=== PATIENT | male | born 1965 | race African-American/Black ===

== ENCOUNTER 2024-09-20 19:00 | Inpatient (IN) | payer OTHER ==
[2024-09-20 19:08] VITALS: RESP 18; BMI 30.2
[2024-09-20] MEDS ORDERED: ACETAMINOPHEN INJECTION 100 ML ONE (20:57)
[2024-09-20] MEDS: ACETAMINOPHEN 1000 MG/100 ML BAG IVPB ONE (20:58)
[2024-09-20 21:00] LABS: BASO % 0.2 % (0-2.0); HEMATOCRIT 41.4 % (35.4-49); HEMOGLOBIN 13.9 GM/dL (11.7-16.9); LYMPH % 11.5 % (8-40); MCH 29.8 pg (25.7-33.7); MCHC 33.7 g/dl (32.0-35.9); MEAN CELL VOLUME 88.5 fl (80-96); MEAN PLT VOLUME 6.6 fl (7.5-11.1); MONO % 9.4 % (3.8-10.2); NEUT % 78.9 % (42.8-82.8); PLATELET COUNT 336 10^3/uL (134-434); RBC 4.67 M/mm3 (4.00-5.60); RDW 13.2 % (11.9-15.9)
[2024-09-20 21:06] LABS: EPI CELLS 12 /uL (0-25.1); HYALINE CASTS 1 /uL (0-3.1); PH,URINE 5.5 (5.0-8.0); URINE APPEARANCE CLOUDY; URINE BACTERIA 2576 /uL (0-1359); URINE BILIRUBIN NEGATIVE (NEGATIVE); URINE COLOR YELLOW; URINE GLUCOSE (UA) NEGATIVE (NEGATIVE); URINE KETONE TRACE (NEGATIVE); URINE LEUK ESTERASE 1+ (NEGATIVE); URINE NITRITE NEGATIVE (NEGATIVE); URINE PROTEIN 2+ (NEGATIVE); URINE RBC 3069 /uL (0-23.9); URINE WBC 445 /uL (0-25.8)
[2024-09-20] MEDS ORDERED: CEFTRIAXONE 1 G/50 ML PREMIX 50 ML IVPB ONE (21:13)
[2024-09-20 21:18] LABS: POTASSIUM 4.1 mmol/L (3.5-5.1)
[2024-09-20 21:20] LABS: CALCIUM 9.2 mg/dL (8.5-10.1)
[2024-09-20 21:21] LABS: ALBUMIN 3.8 g/dl (3.4-5.0); BLOOD UREA NITROGEN 14.8 mg/dL (7-18)
[2024-09-20 21:24] LABS: CREATININE 1.5 mg/dL (0.55-1.3)
[2024-09-20 21:25] LABS: TOT PROT 7.6 g/dl (6.4-8.2)
[2024-09-20] MEDS: CEFTRIAXONE 1 GM in DEXTROSE 5%-WATER - 100 ML IVPB ONE (21:30)
[2024-09-20] MEDS: SODIUM CHLORIDE 0.9% 1000 ML INFUS.BAG IV STA (21:32)
[2024-09-20 22:14] LABS: HIV INTERPRETATION NEGATIVE (NEGATIVE)
[2024-09-20] MEDS: MECLIZINE HCL 25 MG TABLET (FP) PO ONE (22:52)
[2024-09-20] MEDS: SODIUM CHLORIDE 1,000 ML IV STA (22:53)
[2024-09-21] MEDS: SODIUM CHLORIDE 1,000 ML IV SCH (03:37)
[2024-09-21] MEDS: PIPERACILLIN/TAZOB 3.375 GM 3.375 GM in DEXTROSE 5%-WATER - 50 ML IVPB SCH ×2 (05:29→15:19)
[2024-09-21] MEDS: ACETAMINOPHEN 500 MG TABLET (FP) PO PRN (05:29)
[2024-09-21] MEDS: PIPERACILLIN/TAZOB 3.375 GM 50 ML IVPB SCH (06:59)
[2024-09-21] MEDS ORDERED: INSULIN ASPART SLIDING SCALE (NOVOLOG) 1 VIAL SQ SCH (07:00)
[2024-09-21] MEDS: INSULIN ASPART SLIDING SCALE (NOVOLOG) 1 VIAL SQ SCH (07:00)
[2024-09-21 09:28] LABS: HEMATOCRIT 38.5 % (35.4-49); MCH 29.8 pg (25.7-33.7); MCHC 33.9 g/dl (32.0-35.9); MEAN CELL VOLUME 88.1 fl (80-96); MEAN PLT VOLUME 6.6 fl (7.5-11.1); PLATELET COUNT 304 10^3/uL (134-434); RBC 4.36 M/mm3 (4.00-5.60); RDW 13.1 % (11.9-15.9); WHITE BLOOD COUNT 10.4 K/mm3 (4.0-10.0)
[2024-09-21 09:49] LABS: POTASSIUM 3.8 mmol/L (3.5-5.1)
[2024-09-21 09:56] LABS: CALCIUM 8.5 mg/dL (8.5-10.1)
[2024-09-21 09:57] LABS: ALBUMIN 3.1 g/dl (3.4-5.0); BLOOD UREA NITROGEN 13.1 mg/dL (7-18)
[2024-09-21 10:00] LABS: CREATININE 1.6 mg/dL (0.55-1.3); PHOSPHOROUS 2.8 mg/dL (2.5-4.9)
[2024-09-21 10:02] LABS: BILIRUBIN,TOTAL 1.4 mg/dL (0.2-1); TOT PROT 6.5 g/dl (6.4-8.2)
[2024-09-21] MEDS: CEFTRIAXONE 1 G/50 ML PREMIX 50 ML IVPB SCH (15:29)
[2024-09-21] MEDS ORDERED: CEFTRIAXONE 1 G/50 ML PREMIX 50 ML IVPB SCH (21:00)
[2024-09-22 05:23] LABS: EPI CELLS 17 /uL (0-25.1); HYALINE CASTS 0 /uL (0-3.1); PH,URINE 6.5 (5.0-8.0); URINE APPEARANCE CLEAR; URINE BACTERIA 19 /uL (0-1359); URINE BILIRUBIN NEGATIVE (NEGATIVE); URINE COLOR YELLOW; URINE GLUCOSE (UA) NEGATIVE (NEGATIVE); URINE KETONE NEGATIVE (NEGATIVE); URINE LEUK ESTERASE 1+ (NEGATIVE); URINE NITRITE NEGATIVE (NEGATIVE); URINE PROTEIN TRACE (NEGATIVE); URINE RBC 26 /uL (0-23.9); URINE WBC 192 /uL (0-25.8)
[2024-09-22 07:57] VITALS: BP 105/68; PULSE 83; TEMP 97.8
[2024-09-22 09:59] LABS: POTASSIUM 4.2 mmol/L (3.5-5.1)
[2024-09-22 10:00] LABS: CALCIUM 8.9 mg/dL (8.5-10.1)
[2024-09-22 10:01] LABS: ALBUMIN 3.1 g/dl (3.4-5.0); BLOOD UREA NITROGEN 10.2 mg/dL (7-18)
[2024-09-22 10:04] LABS: CREATININE 1.3 mg/dL (0.55-1.3)
[2024-09-22 10:06] LABS: BILIRUBIN,TOTAL 0.4 mg/dL (0.2-1); TOT PROT 6.6 g/dl (6.4-8.2)
[2024-09-22] MEDS ORDERED: CEFUROXIME AXETIL 500 MG TABLET PO SCH (22:00)
== END 2024-09-22 14:23 | disposition home or self-care (01) | DRG 463 ==
LOC: JER 19:00 → JERBED 21:27 → J5S 09-21 01:19
PROVIDERS: ADMIT Internal Medicine; ATTEND Nurse Practitioner Family
DX: N39.0 Urinary tract infection, site not specified (principal); B96.20 Unspecified Escherichia coli [E. coli] as the cause of diseases classified elsewhere; E11.9 Type 2 diabetes mellitus without complications; E78.5 Hyperlipidemia, unspecified
CPT/HCPCS: 36415; 71045-TC-FY; 76775-TC; 80053; 81003; 82550; 82553; 82962; 83036; 83735; 84100; 84300; 85025; 85027; 87040; 87086; 87186; 87389; 87491; 87522; 87591; 93005; 93010; 99291; J0131